=== PATIENT | male | born 1960 | race African-American/Black ===

== ENCOUNTER 2022-10-07 14:08 | Emergency (ER) | payer MEDICAID, OTHER ==
[~2022-10-07] VITALS: Ht 188 cm; Wt 82.0 kg
[2022-10-07 14:10] VITALS: TEMP 98; O2SAT 99
[2022-10-07] MEDS ORDERED: HALOPERIDOL LACTATE 5MG/ML VIAL IM ONE (14:30)
[2022-10-07 14:43] LABS: CHLORIDE 109 mEq/L (98-107)
[2022-10-07 14:44] LABS: BASOPHILS % 1.1 % (0.0-2.0); EOSINOPHILS % 2.7 % (0.0-5.0); HEMOGLOBIN. 13.5 g/dL (14.0-18.0); LYMPHOCYTES % 38.2 % (20.0-50.0); MEAN CORPUSCULAR HEMOGLOBIN 28.4 pg (28.0-32.0); MEAN CORPUSCULAR VOLUME 86.6 fL (80.0-94.0); MEAN PLATELET VOLUME 8.7 fl (7.4-10.4); PLATELET 292 x1000/uL (130-400); RED BLOOD CELL COUNT 4.74 mill/uL (4.7-6.1); RED CELL DISTRIBUTION WIDTH 15.3 % (11.6-14.6)
[2022-10-07 14:53] LABS: ETHANOL BLOOD < 10 mg/dL (-10)
[2022-10-07] MEDS ORDERED: POTASSIUM CHLORIDE 20MEQ TABLET SR PO ONE (15:00)
[2022-10-07] MEDS ORDERED: KCL 10MEQ/50ML PREMIX 50 ML IV ONE ×3 (15:00→17:30)
[2022-10-07] MEDS ORDERED: LACTATED RINGERS 1,000 ML IV SCH (15:00)
[2022-10-07] MEDS ORDERED: HALOPERIDOL LACTATE 5MG/ML VIAL IM NR (17:45)
[2022-10-07] MEDS ORDERED: KCL 20MEQ/100ML PREMIX 100 ML IV NR (17:45)
[2022-10-07] MEDS ORDERED: POTASSIUM CHLORIDE 20MEQ TABLET SR PO NR (17:45)
[2022-10-07 23:25] VITALS: BP 116/62; PULSE 58; RESP 15
== END 2022-10-07 23:30 | disposition home or self-care (01) ==
LOC: ER 14:08 → EDBD 14:08 → ER 23:30
DX: R11.10 Vomiting, unspecified (principal); E87.6 Hypokalemia; F12.10 Cannabis abuse, uncomplicated
CPT/HCPCS: 80053; 80320; 83690; 85025; 36415; 96365; 96366; 96372; 99284; J1630; J3480; G0480